=== PATIENT | female | born 1975 | race Two or more races ===

== ENCOUNTER 2020-05-03 20:46 | Emergency (ER) | payer MEDICAID ==
[~2020-05-03] VITALS: Ht 165.1 cm; Wt 70.0 kg
[2020-05-03] MEDS ORDERED: LORAZEPAM 1MG TABLET PO ONE (21:30)
[2020-05-03 21:47] VITALS: BP 124/74
== END 2020-05-03 21:48 | disposition home or self-care (01) ==
LOC: ER 20:46
DX: R20.2 Paresthesia of skin (principal); F41.9 Anxiety disorder, unspecified; Z88.8 Allergy status to other drugs, medicaments and biological substances
CPT/HCPCS: 93005; 99283